=== PATIENT | female | born 1965 | race Caucasian/White ===

== ENCOUNTER 2020-10-29 01:33 | Emergency (ER) | payer OTHER ==
[~2020-10-29] VITALS: Ht 160 cm; Wt 62.0 kg
--- NOTE | 2020-10-29 01:34 | NUR ---
INITIAL PT CONTACT. PT BIBA C/O SYNCOPAL EVENT. ALSO C/O HEAVY VAGINAL BLEEDING XMULTIPLE DAYS, 1 HEAVY PAD/HR. HX OF SAME FOR MULTIPLE YEARS, PRIOR SURGERY FOR SAME. PT DENIES HEAD OR NECK INJURY. PT SITTING UPRIGHT ON GURNEY, CALL LIGHT AND PERSONAL BELONGINGS WITHIN REACH. CONTINUOUS MONITORING IN PLACE. FAMILY AT BEDSIDE.
[2020-10-29 01:51] LABS: BASOPHILS % (AUTO) 1 % (0-1); EOSINOPHILS % (AUTO) 5 % (1-7); LYMPHOCYTES % (AUTO) 20 % (22-44); MEAN CORPUSCULAR HGB CONC 33.3 g/dL (32.4-35.8); MONOCYTES % (AUTO) 7 % (2-9); NEUTROPHILS % (AUTO) 67 % (42-75); PLATELET COUNT 207 x10^3/uL (130-400); RED BLOOD COUNT 4.52 x10^6/uL (3.82-5.3); RED CELL DISTRIBUTION WIDTH 14.7 % (9.6-15.2)
[2020-10-29] MEDS ORDERED: SODIUM CHLORIDE 0.9% 1,000ML IVBOLUS ONE (02:00)
[2020-10-29 02:02] LABS: ALBUMIN 2.7 g/dL (3.4-5.0); ANION GAP 3 mmol/L (5-15); CALCIUM 7.4 mg/dL (8.5-10.1); CHLORIDE 116 mmol/L (98-107); CREATININE 0.69 mg/dL (0.55-1.02)
--- NOTE | 2020-10-29 03:12 | NUR ---
PT UP TO BEDSIDE COMMODE WITH THIS RN. PT DENIES ANY ADDITIONAL NEEDS AT THIS TIME. CALL LIGHT AND BELONGINGS WITHIN REACH. FAMILY REMAINS AT BEDSIDE
--- NOTE | 2020-10-29 03:50 | NUR ---
Covering primary, pt waiting for rad u/s read. VSS.
[2020-10-29 05:28] VITALS: BP 115/73
--- NOTE | 2020-10-29 05:45 | NUR ---
Patient given discharge instructions and they have confirmed that they understand the instructions. Patient ambulatory with steady gait. NAD, all questions answered appropriately, denies additional needs at this time. No personal belongings left in room after discharge.
== END 2020-10-29 05:46 | disposition home or self-care (01) ==
LOC: ED 05:20
DX: R55 Syncope and collapse (principal); N93.9 Abnormal uterine and vaginal bleeding, unspecified
CPT/HCPCS: 36415; 76830; 80048; 82040; 85025; 86850; 86900; 93005; 96360; 96361; 99285; J7030